=== PATIENT | female | born 1985 | race Caucasian/White ===

== ENCOUNTER → 2024-03-17 07:15 | Outpatient (REF) | payer BC, SELFPAY | LOC: WDC 07:15 | PROVIDERS: ATTENDING PHYSICIAN Family Medicine | DX: Z12.31 Encounter for screening mammogram for malignant neoplasm of breast (principal); Z80.3 Family history of malignant neoplasm of breast | CPT/HCPCS: 77063; 77067 ==

== ENCOUNTER → 2025-03-18 10:52 | Outpatient (REF) | payer BC, SELFPAY | LOC: WDC 10:52 | PROVIDERS: ATTENDING PHYSICIAN Nurse Practitioner | DX: Z12.31 Encounter for screening mammogram for malignant neoplasm of breast (principal); Z80.3 Family history of malignant neoplasm of breast | CPT/HCPCS: 77063; 77067 ==